=== PATIENT | male | born 2000 | race Caucasian/White ===

== ENCOUNTER 2025-04-01 22:26 | Emergency (ER) | payer BC ==
[~2025-04-01] VITALS: Ht 170.2 cm; Wt 80.0 kg
[2025-04-01 22:38] VITALS: O2SAT 100
[2025-04-02] MEDS: ACETAMINOPHEN 325MG TABLET PO ONE (00:01)
[2025-04-02] MEDS: FLUORESCEIN SODIUM 1MG/STRIP LEFTEYE ONE (00:24)
[2025-04-02] MEDS: TETRACAINE 0.5% OPHTH DROPS 4ML BOTHEYE ONE (00:24)
[2025-04-02] MEDS ORDERED: ERYT60SO16 TP (00:40)
[2025-04-02] MEDS ORDERED: ERYT1OIN6 LEFTEYE (00:40)
[2025-04-02 01:10] VITALS: BP 111/60; PULSE 69; RESP 16; TEMP 36.6; O2SAT 100
== END 2025-04-02 01:29 | disposition home or self-care (01) ==
LOC: ER 22:26
DX: H57.8A2 Foreign body sensation, left eye (principal)
CPT/HCPCS: 99283